=== PATIENT | female | born 1995 | race Caucasian/White ===

== ENCOUNTER 2022-10-15 08:02 | Emergency (ER) | payer OTHER, SELFPAY ==
[2022-10-15 08:14] VITALS: BP 111/76; PULSE 81; RESP 16; TEMP 36.2; O2SAT 100
--- NOTE | 2022-10-15 08:41 | ED.URI ---
HPI - URI/Sore Throat General Chief Complaint: Upper Respiratory Infection Stated Complaint: BODY ACHES/HEADACHE/FEVER/COUGH/CHILLS/VOMITING Source: patient Mode of arrival: ambulatory Limitations: no limitations History of Present Illness HPI Narrative: 27-year-old female presents to [facility] with complaints of body aches, headache, cough, nasal congestion, nausea and sore throat for the past 5 days. Patient has been taking [id number] Midol and Motrin with minimal relief. Patient denies sick contacts. Patient denies recent trauma. Patient denies vomiting, diarrhea. Patient reports low-grade fevers up to 99. MD elicited complaint: fever, cough, sore throat, rhinorrhea and nasal congestion Onset (ago): day(s) (5) Consistency: intermittent Severity: mild Able to tolerate fluids by mouth: Yes Exacerbating factors: swallowing Treatments prior to arrival: ibuprofen and cold medicine Related Data Home Medications Medication Instructions Recorded Confirmed escitalopram oxalate 5 mg tablet 5 mg PO DAILY 01/05/22 meloxicam 15 mg tablet 15 mg PO DAILY 01/05/22 metformin 500 mg tablet 500 mg PO DAILY 01/05/22 norethindrone 1 mg-ethinyl 1 tablet PO DAILY 01/05/22 estradiol 35 mcg tablet (Alyacen) Allergies Allergy/AdvReac Type Severity Reaction Status Date / Time No Known Allergies Allergy Verified 10/15/22 09:03 Review of Systems Constitutional: Constitutional: Reports chills, Reports fatigue, Reports fever(s) and Denies weakness ENT: Denies vertigo, Denies dizziness, Denies epistaxis, Reports nasal congestion and Reports sore throat Cardiovascular: Cardiovascular: Denies chest pain Respiratory: Respiratory: Reports cough, Denies dyspnea and Denies wheezing Gastrointestinal: Gastrointestinal: Denies diarrhea, Reports nausea and Denies vomiting Musculoskeletal: Musculoskeletal: Denies arthralgias and Denies joint swelling Integumentary/Breasts: Skin/Breast: Denies rash Neurologic: Reports headache(s) [facility] Family History Family History Mother Fibromyalgia Lupus Ovarian cancer Rheumatoid aortitis Father Reflex sympathetic dystrophy Schizophrenia Social History Social History Smoking status: Former smoker Tobacco type: cigarettes Smoking end date: 12/12/21 Comments At time of signature, I agree with nursing past medical, surgical, social and family history. There is no relevant family history pertinent to the presenting complaint. Exam Const: General: healthy appearing, no acute distress and alert Nutritional Appearance: well nourished Orientation/consciousness: patient oriented x3 Limitations: no limitations HENMT: Head: normal to inspection Ears: external ears normal, TM's normal bilaterally and EAC's normal Mouth: Yes lip normal and Yes moist mucous membranes Teeth and gingiva: dentition normal Throat: uvula midline Other: Mild erythema to posterior pharynx. No peritonsillar abscesses noted. tonsils are within normal limits Eyes: Conjunctivae: conjunctivae normal Neck: Neck: normal visual inspection Resp: Effort & Inspection: normal respiratory effort and not labored Auscultation: clear to auscultation bilaterally, no crackles, no rales, no rhonchi and no wheezes Cardio: Rate: regular rate Rhythm: regular rhythm Heart sounds: no murmurs Skin: General skin exam: normal color Rashes: no rashes Wounds: no wounds Neuro: General: patient oriented x3 Speech: normal speech Gait exam (Neuro): Normal gait present Psych: Affect: normal affect Attitude: cooperative Course Course Level of Care: Express Care Visit Vital Signs Vital signs: Vital Signs Temperature 36.2 C L 10/15/22 08:14 Pulse Rate 81 10/15/22 08:14 Respiratory Rate 16 10/15/22 08:14 Blood Pressure 111/76 10/15/22 08:14 Pulse Oximetry 100 10/15/22 08:14
== END 2022-10-15 09:04 | disposition home or self-care (01) ==
PROVIDERS: Emergency Provider Nurse Practitioner Family
DX: J02.0 Streptococcal pharyngitis (principal); Z20.822 Contact with and (suspected) exposure to COVID-19; Z87.891 Personal history of nicotine dependence
CPT/HCPCS: 81025; 87426; 87804; 87880; 99213; C9803; G0463

== ENCOUNTER 2023-08-05 09:42 | Emergency (ER) | payer OTHER, SELFPAY ==
--- NOTE | 2023-08-05 09:49 | ED.FEMALEGU ---
HPI - Female Genitourinary General Chief complaint: Abdominal Pain Stated complaint: ABD PAIN/VAG DISCHARGE/PCOS Time Seen by Provider: 08/05/23 09:57 Source: patient and RN notes reviewed Mode of arrival: ambulatory Limitations: no limitations History of Present Illness HPI Narrative: 28-year-old female presents concern for lower abdominal pain, vaginal discharge. Reports symptoms been going on for about a week. Reports the discharge is intermittent, she reports it is greenish yellow in color and not foul-smelling. She denies concern for STDs. She reports her last menstrual period was 2 months ago. Reports history of PCOS. She denies nausea, vomiting, constipation, diarrhea. Denies fever. She reports urine frequency. Denies dysuria MD elicited complaint: pelvic pain Related Data Home Medications Medication Instructions Recorded Confirmed metformin 500 mg tablet 500 mg PO BID 01/05/22 08/05/23 norethindrone acetate 1.5 1 tablet PO DAILY 08/05/23 08/05/23 mg-ethinyl estradiol 30 mcg tablet (Junel) Allergies Allergy/AdvReac Type Severity Reaction Status Date / Time No Known Allergies Allergy Verified 08/05/23 09:56 Review of Systems Review of Systems: CONSTITUTIONAL: Denies malaise, chills, sweats, or fever. CARDIOVASCULAR: Denies chest pain, palpitations, or edema. RESPIRATORY: Denies cough or dyspnea. GASTROINTESTINAL: Hurts bilateral lower abdominal pain. Denies, nausea, vomiting, diarrhea GENITOURINARY: Denies dysuria. Reports vaginal discharge, frequency, suprapubic pressure. Denies flank pain or hematuria. SKIN: Denies rash or itching. MUSCULOSKELETAL: Denies back pain or myalgia. All systems reviewed & are unremarkable except as noted in HPI and below PMFSH Family History Family History Mother Fibromyalgia Lupus Ovarian cancer Rheumatoid aortitis Father Reflex sympathetic dystrophy Schizophrenia Social History Social History Smoking status: Former smoker Tobacco type: cigarettes Smoking end date: 12/12/21 Comments At time of signature, agree with nursing past medical, surgical, social and family history. There is no relevant family history pertinent to the presenting complaint Exam Narrative: GENERAL: Well-appearing, well-nourished, and in no acute distress. HEAD: Normocephalic. EYES: PERRLA, conjunctivae clear. NECK: Supple. No lymphadenopathy CHEST: Clear to auscultation. No respiratory distress. HEART: Regular rate and rhythm. ABDOMEN: Soft, bilateral lower abdominal tenderness, nondistended, no palpable or pulsatile masses, no guarding. SKIN: Warm, dry, no rash. NEURO: Alert and oriented x3. PSYCH: Normal mood and affect Course Course Emergency Course: UA recently trace blood, urine test is negative Patient is aware of, understands and agrees to be transferred to the emergency department. Patient agrees to proceed directly to the emergency department. Portions of this record may have been created with voice recognition software Level of Care: Express Care Visit Vital Signs Vital signs: Reviewed. Transfer Transfered to: [place] Transportation: Other (Private vehicle) Transfer rationale: Abdominal pain Accepting physician: Domenico MDM - Female Genitourinary MDM Narrative Medical decision making narrative: Exam findings warrant further evaluation emergency room; patient is non-toxic appearing and is in no distress. Differential Diagnosis Differential diagnosis: Likely urinary tract infection, bacterial vaginosis, cervicitis, vaginitis and cystitis Critical Care Time Critical Care Time Critical Care Time: No Discharge Plan Discharge Clinical Impression: Abdominal pain Patient Disposition: Acute Care Hospital Condition: Stable Prescriptions: No Action norethindrone ac-eth estradiol [ (21)]
[2023-08-05 09:55] VITALS: BP 129/89; PULSE 73; RESP 16; TEMP 36.9; O2SAT 100
== END 2023-08-05 10:15 | disposition short-term general hospital (02) ==
PROVIDERS: Emergency Provider Nurse Practitioner
DX: R10.31 Right lower quadrant pain (principal); R10.32 Left lower quadrant pain; Z87.891 Personal history of nicotine dependence; E28.2 Polycystic ovarian syndrome
CPT/HCPCS: 81003; 81025; 99212; G0463

== ENCOUNTER 2023-08-05 10:32 | Emergency (ER) | payer OTHER, SELFPAY ==
--- NOTE | ~2023-08-05 | US_ITS ---
EXAMINATION: US pelvic complete DATE: 08/05/2023 14:13 INDICATION: Bilateral pelvic pain TECHNIQUE: Multiple transabdominal sonographic images of the pelvis were obtained. COMPARISON: None. FINDINGS: The uterus measures 7.6 x 3.9 x 4.7 cm. The endometrial complex measures 7 mm in thickness. The righ t ovary measures 5.2 x 4.8 x 4.3 and contains a simple appearing 4.6 x 4.3 x 3.4 cm anechoic cyst. Th e left ovary measures 5.3 x 1.6 x 1.1 cm. Vascular flow identified in both ovaries on color Doppler. There is no free fluid in the pelvis. IMPRESSION: 1. 4.6 cm simple appearing right ovarian cyst. Otherwise unremarkable pelvic ultrasound with vascular flow on color Doppler at both ovaries. Reviewed, dictated and finalized at location A. IMPRESSION: 1. 4.6 cm simple appearing right ovarian cyst. Otherwise unremarkable pelvic ul trasound with vascular flow on color Doppler at both ovaries.
[2023-08-05 10:38] VITALS: BP 125/86; PULSE 71; RESP 18; TEMP 36.4; O2SAT 100
--- NOTE | 2023-08-05 10:46 | ED.ABDPAIN ---
HPI - Abdominal Pain General Chief Complaint: Abdominal Pain <Jordin Grimes MD - Last Filed: 08/05/23 17:33> Stated Complaint: abd pain <Jordin Grimes MD - Last Filed: 08/05/23 17:33> Time Seen by Provider: 08/05/23 10:34 <Jordin Grimes MD - Last Filed: 08/05/23 17:33> History of Present Illness HPI narrative: 28-year-old female presenting to the emergency department for evaluation of 1.5 weeks of lower abdominal pain. Patient also describes a green vaginal discharge with the symptoms. Patient denies any change in bowel habits. Patient denies any pain with urination. Patient also does report a history of PCOS <Jordin Grimes MD - Last Filed: 08/05/23 17:33> Related Data Home Medications: Home Medications Medication Instructions Recorded Confirmed metformin 500 mg tablet 500 mg PO BID 01/05/22 08/05/23 norethindrone acetate 1.5 1 tablet PO DAILY 08/05/23 08/05/23 mg-ethinyl estradiol 30 mcg tablet (Junel) <Jordin Grimes MD - Last Filed: 08/05/23 17:33> Allergies/Adverse Reactions: Allergies Allergy/AdvReac Type Severity Reaction Status Date / Time No Known Allergies Allergy Verified 08/05/23 09:56 <Jordin Grimes MD - Last Filed: 08/05/23 17:33> Review of Systems Review of Systems: All systems reviewed & are unremarkable except as noted in HPI and below <Jordin Grimes MD - Last Filed: 08/05/23 17:33> PMFSH Family History Family History: Family History Mother Fibromyalgia Lupus Ovarian cancer Rheumatoid aortitis Father Reflex sympathetic dystrophy Schizophrenia <Jordin Grimes MD - Last Filed: 08/05/23 17:33> Social History Social History: Social History Smoking status: Former smoker Tobacco type: cigarettes Smoking end date: 12/12/21 <Jodrin Grimes MD - Last Filed: 08/05/23 17:33> Exam Narrative: APPEARANCE: Well appearing, no pain, no distress, well-nourished. HEAD: normocephalic, atraumatic. EYES: PERRLA/EOMI, conjunctivae clear. NOSE: Normal no drainage EARS:TMS clear with good light reflex. THROAT: Pharynx clear, no exudate. NECK: Supple. No adenopathy, no masses. RESPIRATORY: Airway patent, respirations nonlabored. Clear to auscultation bilaterally, no rales, rhonchi, wheezing. CARDIOVASCULAR: Regular rate and rhythm without murmurs rubs or gallops. ABDOMINAL: Lower abdominal tenderness to palpation MUSCULOSKELETAL: Moves all extremities. Strength/ROM intact, No edema, No calf tenderness. NEURO: Alert. Cranial nerves II through XII intact. Grossly intact SKIN: Warm, dry. Normal Color <Jordin Grimes MD - Last Filed: 08/05/23 17:33> APPEARANCE: Well appearing, no pain, no distress, well-nourished. HEAD: normocephalic, atraumatic. EYES: PERRLA/EOMI, conjunctivae clear. NOSE: Normal no drainage EARS:TMS clear with good light reflex. THROAT: Pharynx clear, no exudate. NECK: Supple. No adenopathy, no masses. RESPIRATORY: Airway patent, respirations nonlabored. Clear to auscultation bilaterally, no rales, rhonchi, wheezing. CARDIOVASCULAR: Regular rate and rhythm without murmurs rubs or gallops. ABDOMINAL: Lower abdominal tenderness to palpation MUSCULOSKELETAL: Moves all extremities. Strength/ROM intact, No edema, No calf tenderness. NEURO: Alert. Cranial nerves II through XII intact. Grossly intact SKIN: Warm, dry. Normal Color PELVIC: Normal external genitalia. Mild amount of irritation around the cervical os. Mild amount of yellow discharge in the vaginal vault <Susana Acuña PA-C - Last Filed: 08/05/23 15:21> Course Vital Signs Vital signs: Vital Signs Temperature 97.6 F 08/05/23 10:38 Pulse Rate 71 08/05/23 10:38 Respiratory Rate 18 08/05/23 10:38 Blood Pressure 125/86 08/05/23 10:38 Pulse Oximetry 100 08/05/23 10:38 Oxygen Delivery
[2023-08-05 11:06] LABS: Basophils Absolute Auto 0.1 K/mm3 (0.0-0.1); Basophils Percent Auto 0.7 % (0.2-1.2); Eosinophils Absolute Auto 0.2 K/mm3 (0-0.3); Eosinophils Percent Auto 2.2 % (0-4.4); Hematocrit 40.8 % (37.0-47.0); Immature Granulocyte Absolute 0.02 K/mm3 (0.00-0.031); Immature Granulocyte Percent A 0.3 % (0-0.5); Lymphocytes Absolute Auto 1.85 K/mm3 (0.9-3.2); Lymphocytes Percent Auto 25.4 % (18.3-44.2); Mean Corpuscular HGB Conc 34.3 g/dl (32-36); Mean Corpuscular Hemoglobin 31.7 pg (26-34); Mean Corpuscular Volume 92.5 fl (80-100); Mean Platelet Volume 9.9 fl (7.4-10.4); Monocytes Absolute Auto 0.5 K/mm3 (0.1-0.6); Monocytes Percent Auto 6.7 % (2.6-8.5); Neutrophils Absolute Auto 4.7 K/mm3 (1.3-6.7); Neutrophils Percent Auto 64.7 % (45.5-73.1); Platelet Count Result 279 k/mm3 (150-375); Red Blood Count 4.41 M/mm3 (4.2-5.4); Red Cell Distribution Width 12.2 % (11.5-14.5); White Blood Count 7.3 K/mm3 (4.5-10.0)
[2023-08-05 11:08] LABS: Appearance Urine Clear (Clear); Bilirubin Urine Negative (Negative); Blood Urine Negative (Negative); Color Urine Yellow (Yellow); Glucose Urine UA Negative (Negative); Ketones Urine Negative (Negative); Leukocyte Esterase Ur Negative LEU/UL (Negative); Nitrate Urine Negative (Negative); Protein Urine Negative (Negative); Specific Grav Ur 1.009 (1.001-1.035); Urobilinogen Urine 0.2 mg/dL (<2.0)
[2023-08-05 11:18] LABS: Alanine Aminotransferase 19 U/L (6-35); Albumin Level 4.3 g/dL (3.5-5.1); Alkaline Phosphatase 48 U/L (38-126); Anion Gap 6 mmol/L (4-12); Aspartate Amino Transferase 20 U/L (14-36); Bilirubin,Total 0.4 mg/dL (0.2-1.3); Blood Urea Nitrogen 7 mg/dL (7-17); Calcium 9.4 mg/dL (8.4-10.2); Carbon Dioxide 22 mmol/L (22-30); Chloride 110 mmol/L (98-107); Estimated CRCL calculation 117 ml/min; Estimated Glomerular Filt Rate > 60; Glucose 89 mg/dL (65-110); Lipase 113 U/L (23-300); Potassium 4.4 mmol/L (3.4-5.0); Sodium 138 mmol/L (137-145)
[2023-08-05 11:43] LABS: Add Urine Microscopic? NO
[2023-08-05 12:48] LABS: Trichomonas Vag PCR NOT DETECTED (NOT DETECTE)
[2023-08-05 13:11] LABS: Chlamydia trachomatis NOT DETECTED (NOT DETECTE); Neisseria gonorrhoeae PCR NOT DETECTED (NOT DETECTE)
[2023-08-05 13:33] VITALS: BP 113/62; PULSE 66; RESP 19; O2SAT 98
== END 2023-08-05 15:10 | disposition home or self-care (01) ==
PROVIDERS: Physician Assistant; Emergency Provider Emergency Medicine
DX: N83.291 Other ovarian cyst, right side (principal); R10.30 Lower abdominal pain, unspecified; N89.8 Other specified noninflammatory disorders of vagina; E28.2 Polycystic ovarian syndrome
CPT/HCPCS: 36415; 76856; 80053; 81003; 81025; 83690; 85025; 87070; 87491; 87591; 87661; 99284

== ENCOUNTER 2025-01-29 13:36 | Outpatient (CLI) | payer OTHER, SELFPAY ==
--- OUTSIDE RECORDS SUMMARY | 2025-01-29 14:11 | XMS_ITS | Clinical Summary ---
Author Organization [facility] [employer] Address [address] [place] [address] Care Team Providers Care Service Correspondent Name Role Phone Idris Haas MD Primary Care Provider [phone] Source Comments [facility],non-owned Affiliates and Associated Physician Practices is amultiple site organization consisting of ambulatory clinics and hospital sitesin [place], [place], [place] and [place]. This disclosure is being madepursuant to the Care Everywhere program and may not contain all information available regarding this patient. 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 Gender Identity Not on file Sexual Orientation Not on file Plan of Treatment Health Maintenance Due Date Last Done Comments HIV SCREENING 2012 HEPATITIS C SCREENING 03/19/2015 DTAP/TDAP/TD VACCINES (1 - Tdap) 2016 HEPATITIS B VACCINE (1 of 3 - 19+ 3-dose series) 2016 HPV VACCINE (1 - 3-dose SCDM series) 2024 DEPRESSION SCREENING 04/02/2024 COVID-19 VACCINE (1 - 2023-2 5 season) 2024 INFLUENZA VACCINE (#1) 2024 ZOSTER VACCINE (1 of 2) 2047 HIB VACCINE Aged Out No longer eligi ble based on patient's age to complete this topic MENINGOCOCCAL (Group B) VACC INE SHARED DECISION-MAKING Aged Out No longer eligibl e based on patient's age to complete this topic MENINGOCOCCAL GROUPS A/C/Y/W VACCINE Aged Out No longer eligible b ased on patient's age to complete this topic PNEUMOCOCCAL VACCINE Aged Out No long er eligible based on patient's age to complete this topic Care Teams Service Correspondent Relationship Specialty Start Date End Date Idris Haas MD [address] [place] [id number] PCP - General Family Medicine 11/08/17
--- OUTSIDE RECORDS SUMMARY | 2025-01-29 14:11 | XMS_ITS | Encounter Summary ---
Author Organization [facility] Address [address] [place] [id number] Care Team Providers Care Pickle Solution Maker Name Role Phone Julianne Vazquez MD Primary Care Provider + Encounter Details Date Type Department Care Team (Latest Contact Info) Description 12/29/2024 Local Dirt Message Enc [facility] Multispecialty Care - [address], [address] [place] [address] [employer], [facility] Provider Dr Maurilio Castillo's fax Social History Tobacco Use Types Packs/Day Years Used Date Smoking Tobacco: Former Cigarettes Smokeless Tobacco: Never Alcohol Use Standard Drinks/Week Comments Not Currently 0 (1 standard drink = 0.6 oz pur e alcohol) AUDIT-C Answer Date Recorded Frequency of Alcohol Consumption Never 05/19/2019 Average Number of Drinks Not on file 020 Frequency of Binge Drinking Not on file 05/03 PHQ-2 Answer Date Recorded Patient Health Questionnaire-2 Score 1 2023 Comments No Sex and Gender Information Value Date Recorded Sex Assigned at Not on file Legal Sex Female 7:00 PM CDT Gender Identity Not on file Sexual Orientation Lesbian 04/14/2021 11 :31 AM SUPPORT SERVICE TECH documented as of this encounter Plan of Treatment Not on file documented as of this encounter Visit Diagnoses Not on filedocumented in this encounter Care Teams Pickle Solution Maker Relationship Specialty Start Date End Date Julianne Vazquez MD [address] [place] [address] PCP - General FAMILY PRACTICE 03/10/23 documented as of this encounter
--- OUTSIDE RECORDS SUMMARY | 2025-01-29 14:11 | XMS_ITS | Clinical Summary ---
Author Organization [facility] Care Team Providers Care Flatwork Finisher Hand Name Role Phone Unavailable Primary Care Provider Unavailabl e Social History Tobacco Use Types Packs/Day Years Used Date Smoking Tobacco: Never Assessed Comments Unknown Sex and Gender Information Value Date Recorded Sex Assigned at Not on file Legal Sex Female 11:29 AM CDT Gender Identity Not on file Sexual Orientation Not on file Plan of Treatment Health Maintenance Due Date Last Done Comments Hepatitis C Virus (HCV) Screening 1997 Human Papillomavirus (HPV) Immunization (1 - 3-dose SCDM series) 2024 Influenza Immunization (#1) 2024 SARS-COV-2 Immunization (3 - 2024- season) 2024 09/22/2020, 09/01/2020 Respiratory Syncytial Virus (RSV) Immunization (Adult) (1 - 1-dose 75+ series) 2072 Meningococcal B Immunization Discontinued 11/06/2014 DTaP/Tdap/Td Immunization Discontinued 2018, 10/30/2008, 01/02/2003, Additional history exists Hepatitis B Immunization Completed 019, 06/24/1999, 1997, Additional history exists TdaP Immunization Completed 06/25/2018, 10/30/2008 Meningococcal Immunization (ACWY) Aged Out No longer eligible based on patient's age to complete this topic Pneumococcal Immunization Combined Aged Out No longer eligible based on patient's age to complete this topic Rotavirus Immunization Aged Out No lo nger eligible based on patient's age to complete this topic
--- OUTSIDE RECORDS SUMMARY | 2025-01-29 14:11 | XMS_ITS | Clinical Summary ---
Author Organization [facility] Address [facility] [place] [address] Care Team Providers Care Mechanical Ordnance Assembler Name Role Phone Julianne Vazquez MD Primary Care Provider + Allergies No known active allergies Medications metFORMIN 500 MG tablet Take 2 tablets (1,000 mg total) by mouth daily. 01/18/20 19 Active ALAYCEN 135 1-35 MG-MCG tablet Take 1 tablet by mouth daily. 11/02/19 22 Active escitalopram (LEXAPRO) 5 MG tablet Take 1 tablet (5 mg total) by mouth daily. 10/17/19 Active vilazodone (VIIBRYD) 20 MG tabletIndications: Depression Take 0.5 tablets (10 mg total) by mouth daily. Indications: Depression Take one healf tablet by mouth every morning for one week then one tab every morning Active ondansetron (ZOFRAN-ODT) 4 MG disintegrating tablet Take 1 tablet (4 mg total) by mouth every 8 (eight) hours as needed for Nausea. 20 tablet 03/10/20 Active Additional Information Patient not taking.Reported on 2023 albuterol sulfate HFA 108 (90 Base) MCG/ACT inhaler TAKE 2 PUFFS BY MOUTH EVERY 6 HOURS NEEDED FOR WHEEZE OR FOR SHORTNESS OF BREATH 01/21/20 Active JUNEL .08/29 1.5-30 MG-MCG tablet Take 1 tablet by mouth daily. DIRECTED 01/17/20 Active Active Problems Problem Noted Date Diagnosed Date Left shoulder pain 12/27/2021 Diarrhea 09/16/2016 Overview (09/11/2019): Date Onset: 09/16/2016 Anxiety and depression 09/16/2016 Encounters Date Type Department Care Team Description 12/29/2024 [employer] Message Enc [facility] Multispecialty Care - [address], [address] [place] [phone] [place], [facility] Provider Dr Maurilio Castillo's fax from Last 3 Months Immunizations Immunization Administration Dates Next Due Dtap 01/02/2003, 0,1997,1997,1997 Hepatitis B (Generic: Adult) 06/25/2018 Hepatitis B Pediatric 1997,1997 Hepatitis B/Hib 3 Dose Schedule 06/24/1999 Hib 1997,1997 IPV/OPV 01/02/2003 MMR 01/02/2003,06/24/1999 Meningcoccal Group B (Keisha ba)(aka Meningitis) 11/06/2014 Opv 06/24/1999,1997,1997 Tdap (Adacel) 10/30/2008 Tdap (Boostrix) 06/25/2018 Varicella (Varivax) 11/06/2014 Social History Tobacco Use Types Packs/Day Years Used Date Smoking Tobacco: Former Cigarettes Smokeless Tobacco: Never Tobacco Cessation:Counseling Given: Yes Alcohol Use Standard Drinks/Week Comments Not Currently [...] Sexual Orientation Lesbian 04/14/2021 11 :31 AM 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 Last Filed Vital Signs Vital Sign Reading Time Taken Comments Blood Pressure 113/77 07/04/2023 12:47 AM CDT Pulse 75 07/04/2023 12:47 AM CDT Temperature 36.2 C (97.2 F) 07/04/2023 12:47 AM CDT Respiratory Rate 16 07/04/2023 12:47 AM CDT Oxygen Saturation 98% 07/04/2023 1:10 AM CDT Inhaled Oxygen Concentration - - Weight 77.1 kg (170 lb) 07/04/2023 12:47 AM CDT Height 170.2 cm (5' 7) 07/04/2023 12:47 AM CDT Body Mass Index 26.63 07/04/2023 12:47 AM CDT Plan of Treatment Health Maintenance Due Date Last Done Comments Cervical Cancer Screening Pap Smear (Age 21 to 29) Every 3 Years 1997 Cervical Cancer Screening 1997 Annual Physical 2000 Meningococcal B Vaccine (2 of 2 - [place] SCDM 2-dose series) 05/09/2015 11/06/2014 HPV Vaccines (1 - 3-dose SCDM series) 2024 PHQ-2 (Physician [place]) 04/02/2024 2023 COVID-19 Vaccine ( - season) 2024 Influenza Adult (#1) 2024 01/21/2021 DTaP, Tdap and Td Vaccines (8 - Td or Tdap) 06/25/2028 06/25/2018, 10/30/2008, 01/02/2003, Additional history exists Hepatitis B Vaccines Completed 06/25/2018, 06/24/1999, 1997, Additional history exists Hepatitis C Completed 08/10/2022 Hepatitis A Vaccines Aged Out No long er eligible based on patient's age to complete this topic Meningococcal Vaccine Aged Out No el keith eligible based on patient's age to complete this topic Pneumococcal Vaccine: Pediatrics (0 to 5 Years) and At-Risk Patients (6 to 49 Years) Aged Out No longer eligible based on patient's age to complete this topic RSV Immunizations Under 20 Months Aged Out No longer eligible based on patient's age to complete this topic Procedures Procedure Name Priority Date/Time Associated Diagnosis Comments HEPATITIS C ANTIBODY Routine 08/10/2022 11:05 AM CDT Routine general medical examination at a health care facility from Last 3 Months or Most Recently Relevant to Health Maintenance Results * HEPATITIS C ANTIBODY (08/10/2022 11:05 AM CDT) HEPATITIS C AB NON-REACTI VE NON-REACTI VE 08/10/2022 3:20 PM CDT [facility] 08/10/2022 11:0 5 AM CDT Marybel Dolan DO LABORATORY Final Resu lt [facility] [address] [place] [address], from Last 3 Months or Most Recently Relevant to Health Maintenance Insurance [employer] Care Teams Mechanical Ordnance Assembler Relationship Specialty Start Date End Date Julianne Vazquez MD [address] [place] [id number] PCP - General FAMILY PRACTICE 03/10/23
--- OUTSIDE RECORDS SUMMARY | 2025-01-29 14:11 | XMS_ITS | Clinical Summary ---
Author Organization [facility] Address [address] [place] [address] Care Team Providers Care Special Day Class Teacher Name Role Phone Idris Haas MD Primary Care Provider [phone] Allergies No known active allergies Medications albuterol HFA (PROVENTIL HFA,VENTOLIN HFA,PROAIR HFA) 90 mcg/actuation inhaler Inhale 2 puffs every 6 (six) hours as needed for wheezing 1 each 2 Active Alyacen 1/35, 28, 1-35 mg-mcg per tablet 1 Active metFORMIN (GLUCOPHAGE) 500 mg tablet 1 Active albuterol HFA (PROVENTIL HFA,VENTOLIN HFA,PROAIR HFA) 90 mcg/actuation inhaler TAKE 2 PUFFS BY MOUTH EVERY 6 HOURS NEEDED FOR WHEEZE OR FOR SHORTNESS OF BREATH 8.5 each 3 Active Active Problems Problem Noted Date Diagnosed Date Acute non-recurrent pansinusitis 08/08/2022 Assessment & Plan (08/11/2022 2:12 PM CDT): Explained to patient she may need to get the antibiotic more time. Stop the Mucinex and start Sudafed as a decongestant to help dry up the mucus. Taking at home COVID test in case this is COVID-19. Drink plenty of fluids and rest. Work note sent to the patient. Assessment & Plan (08/08/2022 10:18 AM CDT): Due to length of illness we will treat with antibiotic, please complete the whole course of antibiotics-no leftovers. Prescription for antibiotics sent. Reviewed potential benefits and potential side effects of augmentin. Aware to complete full course of antibiotic. To continue otc medications. Discussed nasal saline rinses/neti pots. Discussed need to increase fluid intake. May use 1 teaspoon honey every 4 hours as needed for cough, encourage use of hot tea or hot water with honey. May use vicks vapo rub on chest and bottom of feet before bed. Cool mist humidifier in bedroom. Lots of water, rest and handwashing, no sharing cups or utensils. If symptoms worsen including but not limited to shortness of breath, chest pain and/or increasing pain please notify office or present to Emergency Department. 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 Augmentin twice a day Continue the Zyrtec D Tylenol or Ibuprofen for pain Drink plenty of fluids. Abnormal uterine bleeding 11/30/2016 Female hirsutism 11/30/2016 Pain in pelvis 11/30/2016 PCOS (polycystic ovarian syndrome) 11/30/2016 Anxiety and depression 09/16/2016 Encounters Date Type Department Care Team Description 12/16/2024 Telephone [facility] Medicine Reproductive Endocrinology [address] [address] Breanne Vo New Patient from Last 3 Months Immunizations Immunization Administration Dates Next Due DTaP 01/02/2003, 0,1997,08/11,1997 Hep B / HiB 06/24/1999 Hep B Vaccine 06/25/2018 Hep B, Adolescent or Pediatric 1997,1996 HiB 1997,1997 Hib (HbOC) 1997,1997 IPV 01/02/2003 Influenza, Quadrivalent, Spl it, Preservative Free, Intramuscular 01/21/2021 MMR 01/02/2003,06/24/1999 Meningococcal B, Recombinant (Trumenba) 11/06/2014 OPV 01/02/2003, 0,1997,05/20 OPV, Unspecified 06/24/1999,1997, 8 Tdap 06/25/2018,10/30/2008 Varicella 11/06/2014 Family History Medical History Relation Name Comments Cancer Other Reported Family History Of Cancer - (Added by TW Conv) Diabetes Other Diabetes Mellit us - (Added by TW Conv) Hypertension Other Reported Previo us High Blood Pressure - (Added by TW Conv) Relation Name Status Comments Other Social History Tobacco Use Types Packs/Day Years Used Date Smoking Tobacco: Unknown Tobacco Cessation:Counseling Given: Not Answered Comments Unknown Sex and Gender Information Value Date Recorded Sex Assigned at Not on file Legal Sex Female 11:40 AM CDT Gender Identity Female 09/21/2021 4:47 PM CDT Sexual Orientation Bisexual 09/21/2021 4: 47 PM CDT Obstetrics History Last Filed Vital Signs Vital Sign Reading Time Taken Comments Blood Pressure 104/73 05/15/2017 10:18 AM ELECTRONICS DESIGN ENGINEER Pulse 77 03/20/2017 12:47 PM ELECTRONICS DESIGN ENGINEER Temperature - - Respiratory Rate - - Oxygen Saturation - - Inhaled Oxygen Concentration - - Weight 82.6 kg (182 lb 0.2 oz) 05/15/2017 10:18 AM ELECTRONICS DESIGN ENGINEER Height 170.2 cm (5' 7) 03/20/2017 12:47 PM ELECTRONICS DESIGN ENGINEER Body Mass Index 28.51 03/20/2017 12:47 PM ELECTRONICS DESIGN ENGINEER Plan of Treatment Health Maintenance Due Date Last Done Comments Cervical Cancer Screening 1997 Depression Screening 1997 Hepatitis C Screening 1997 Varicella Vaccines (2 of 2 - 13+ 2-dose series) 12/04/2014 11/06/2014 Regular Well Visit/Exam 18-64 2015 HPV Vaccines (1 - 3-dose SCDM series) 2024 Covid-19 Vaccine (3 - 2024- season) 2024 09/22/2020, 09/01/2020 Influenza Vaccine (#1) 2024 01/21/2021 DTaP/Tdap/Td Vaccine (8 - Td or Tdap) 06/25/2028 06/25/2018, 10/30/2008, 01/02/2003, Additional history exists Hepatitis B Screening Completed 06/25/2018 , 06/24/1999, 1997, Additional history exists Pneumococcal vaccine <65 Aged Out No longer eligible based on patient's age to complete this topic Insurance [employer] [facility] Care Teams Special Day Class Teacher Relationship Specialty Start Date End Date Idris Haas MD [address] [place] [id number] PCP - General Family Practice 09/21/21
[2025-01-29 14:40] LABS: Hematocrit 41.8 % (37.0-47.0); Hemoglobin 14.0 g/dL (12.0-15.0); Mean Corpuscular HGB Conc 33.5 g/dl (32-36); Mean Corpuscular Hemoglobin 31.6 pg (26-34); Mean Corpuscular Volume 94.4 fl (80-100); Platelet Count Result 304 k/mm3 (150-375); Red Blood Count 4.43 M/mm3 (4.2-5.4); White Blood Count 5.9 K/mm3 (4.5-10.0)
[2025-01-29 15:21] LABS: Iron 123 ug/dL (37-170)
[2025-01-29 15:31] LABS: Percent Iron Saturation 43 % (20-50)
[2025-01-29 16:02] LABS: Ferritin 47.80 ng/mL (6.24-137)
[2025-02-02 19:08] LABS: Pancreatic Elastase, Fecal >800 (>200)
[2025-02-03 07:08] LABS: Calprotectin, Fecal 17 ug/g (0-120)
== END 2025-01-29 13:37 | disposition home or self-care (01) ==
PROVIDERS: Visit Provider Nurse Practitioner Family
DX: R19.7 Diarrhea, unspecified (principal); R53.83 Other fatigue
CPT/HCPCS: 36415; 82653; 82728; 83540; 83550; 83993; 85027

== ENCOUNTER 2025-02-17 00:44 | Day surgery (SDC) | payer OTHER, SELFPAY ==
[2025-02-09 09:39] VITALS: BMI 24.1
[2025-02-17 08:05] VITALS: BP 114/78; PULSE 89; RESP 16; TEMP 36.6; O2SAT 100; BMI 22.4
[2025-02-17 08:21] LABS: BEDSIDEPREGUCG Negative (Negative)
[2025-02-17] MEDS: LACTATED RINGERS 1,000 ML 150 ML IV CONT (08:29)
--- NOTE | 2025-02-17 08:54 | WPDHPUPDATE1 ---
History and Physical Update Update Date/Time: 02/17/25 08:54 History and Physical has been reviewed, including an updated exam of the patient. There are NO changes in the patient's condition. Risks, benefits, and alternatives have been discussed and questions answered. Patient agrees to proceed with procedure.
--- NOTE | 2025-02-17 08:55 | P.PNAN_ITS ---
Anes - Initial Pre Proc Eval Procedure: Operation Date: 02/17/25 10:00 Proposed Procedures p Diagnostic Colonoscopy - Maikel Gastelum MD Date/Time: 02/17/25 08:55 Surgeon: Maikel Gastelum MD Pre Op Diagnosis: Other fatigue, Diarrhea, unspecified Patient Data Age: 29 Gender: F Height: 1.7 m Weight: 65 kg Last Vital Signs Temp 97.9 F 02/17/25 08:05 Pulse 89 02/17/25 08:05 Resp 16 02/17/25 08:05 BP 114/78 02/17/25 08:05 Pulse Ox 100 02/17/25 08:05 O2 Del Method Room Air 02/17/25 08:05 Allergies Allergy/AdvReac Type Severity Reaction Status Date / Time No Known Allergies Allergy Verified 02/17/25 08:11 Home Medications ?Medication ?Instructions ?Recorded ?Confirmed ?Type metformin 500 mg tablet 500 mg PO BID 01/05/2202/17 History norethindrone acetate 1.5 1 tablet PO DAILY 08/05/23 1 04/19/24 History mg-ethinyl estradiol 30 mcg tablet (Junel) Laboratory Tests 02/17/25 02/17/25 08:05 08:23 POC Capillary Glucose 95 mg/dl (65-105) POC Urine HCG, Qual Negative (Negative) Patient hx anesthesia problems: none Family hx anesthesia problems: none Results Review: All pre-operative results and documents have been reviewed as part of the pre- operative evaluation. [facility] Family History Family History Mother Fibromyalgia Lupus Ovarian cancer Rheumatoid aortitis Father Reflex sympathetic dystrophy Schizophrenia Social History Social History Smoking status: Current every day smoker Tobacco type: e-cigarettes/vaping Alcohol intake: current Alcohol use details: once a month Substance use: current Substance use type: marijuana Other substance usage details: once every 6 months Living arrangements: with family Spiritual care concerns: No Anes - Eval Final PreProcedure Day of Procedure 02/17/25 08:55 Patient weight: normal Lungs: normal air movement Airway: Mallampati scale class II Neurological: alert and oriented Last oral intake: >/= 8 hours ASA classification: II Emergent: no Anesthetic plan: proceed Anesthesia type and monitoring: general GIVS and standard monitoring Results Review: All pre-operative results and documents have been reviewed as part of the pre- operative evaluation. Anxiety/depression, hx of migranes, good exercise tolerance, no cp or sob. Informed Consent: The patient's anesthetic plan and its attendant risks and benefits were discussed with the patient/family/POA. Questions were solicited and answers provided to the satisfaction of the patient/family/POA.
--- NOTE | 2025-02-17 09:11 | S_PTH ---
PATIENT: Rosita De La Vega LOC: [facility]#:[id number] AGE/SX: 29/F ROOM: RE02/17/[address]: Maikel Gastelum MD : 1995 BED: DIS: 02/17/2025 SPEC #: [id number] RECD: 02/17/25 10:18 STATUS: ANDREW REDejuan #: [id number] TERENCE: 02/17/25 09:[address]: Maikel Gastelum DEPT: [facility] Surgical RECD BY: Tim Marcelino ENTERED: 02/17/25 10:19 SP TYPE: Surgical OTHR DR: UNKNOWN,DOCTOR Tissues: A - Colon Biopsy Procedures: Hematoxylin and Eosin Stain Gross and Microscopic Level 4
[2025-02-17 09:18] VITALS: BP 94/53; PULSE 64; RESP 16; O2SAT 100
[2025-02-17 09:28] VITALS: BP 95/54; PULSE 53; RESP 16; O2SAT 100
[2025-02-17 09:38] VITALS: BP 101/55; PULSE 54; RESP 16; O2SAT 100
== END 2025-02-17 09:59 | disposition home or self-care (01) ==
PROVIDERS: Anesthesiology; Referring Provider Nurse Practitioner Family; Visit Provider Internal Medicine Gastroenterology
PROC: 0DJD8ZZ Inspection of Lower Intestinal Tract, Via Natural or Artificial Opening Endoscopic (ICD-10-PCS; CPT 45378; principal; 2025-02-17 10:00)
DX: R19.4 Change in bowel habit (principal); F17.290 Nicotine dependence, other tobacco product, uncomplicated; F12.90 Cannabis use, unspecified, uncomplicated; Z79.84 Long term (current) use of oral hypoglycemic drugs
CPT/HCPCS: 45380; 82948; 88305; J2003; J2704; J7120